=== PATIENT | female | born 1980 | race Caucasian/White ===

== ENCOUNTER 2019-06-01 15:42 | Observation (INO) | payer OTHER ==
[2019-06-01 16:38] LABS: Absolute Lymphocytes (CBC) 1.7 K/uL (0.7-4.9); Basophils % 0.4 % (0-1.3); Hematocrit 43.7 % (36.0-45.0); MPV 8.2 fL (7.6-11.3); RBC Red Blood Cell Count 5.24 M/uL (3.86-4.86)
[2019-06-01 16:59] LABS: Albumin 3.4 g/dL (3.4-5.0); Bilirubin Direct 0.5 mg/dL (0-0.2); Bilirubin Total 1.1 mg/dL (0.2-1.0); Potassium 3.7 mmol/L (3.5-5.1); Protein, Total 8.9 g/dL (6.4-8.2)
--- NOTE | 2019-06-01 17:49 | EDPHYS ---
Physician Documentation [facility] Name: Zonia Beauchamp Age: 38 yrs Sex: Female : 1980 Arrival Date: 06/01/2019 Time: 15:45 Bed 24 Private MD: ED Physician Ibrahima Martino HPI: 06/01 16:05 This 38 yrs old Female presents to ER via Ambulatory with complaints of Flank kb Pain. 16:05 The patient presents with abdominal pain in the right upper quadrant. Onset: The kb symptoms/episode began/occurred 5 day(s) ago. The symptoms do not radiate. Associated signs and symptoms: none. The symptoms are described as constant. Modifying factors: The symptoms are alleviated by nothing, the symptoms are aggravated by nothing. Severity of pain: At its worst the pain was moderate in the emergency department the pain is unchanged. The patient has not experienced similar symptoms in the past. The patient has not recently seen a physician. 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 - Coronavirus screen:: The patient has NOT traveled to [place] in the past 14 days. The patient has NOT had contact with known/suspected case of Coronavirus?. - Social history:: Smoking status: Patient denies any tobacco usage or history of. - Ebola Screening: : Patient negative for fever greater than or equal to 101.5 degrees Fahrenheit, and additional compatible Ebola Virus Disease symptoms Patient denies exposure to infectious person Patient denies travel to an Ebola-affected area in the 21 days before illness onset No symptoms or risks identified at this time. ROS: 16:04 Constitutional: Negative for fever, chills, and weight loss, Neck: Negative for injury, kb pain, and swelling, Cardiovascular: Negative for chest pain, palpitations, and edema, Respiratory: Negative for shortness of breath, cough, wheezing, and pleuritic chest pain, Back: Negative for injury and pain, : Negative for injury, bleeding, discharge, and swelling, MS/Extremity: Negative for injury and deformity, Skin: Negative for injury, rash, and discoloration, Neuro: Negative for headache, weakness, numbness, tingling, and seizure. 16:04 Abdomen/GI: Positive for abdominal pain. Exam: 16:04 Constitutional: This is a well developed, well nourished patient who is awake, alert, kb and in no acute distress. Head/Face: Normocephalic, atraumatic. Chest/axilla: Normal chest wall appearance and motion. Nontender with no deformity. No lesions are appreciated. Cardiovascular: Regular rate and rhythm with a normal S1 and S2. No gallops, murmurs, or rubs. Normal PMI, no JVD. No pulse deficits. Respiratory: Lungs have equal breath sounds bilaterally, clear to auscultation and percussion. No rales, rhonchi or wheezes noted. No increased work of breathing, no retractions or nasal flaring. Back: No spinal tenderness. No costovertebral tenderness. Full range of motion. Skin: Warm, dry with normal turgor. Normal color with no rashes, no lesions, and no evidence of cellulitis. MS/ Extremity: Pulses equal, no cyanosis. Neurovascular intact. Full, normal range of motion. Neuro: Awake and alert, GCS 15, oriented to person, place, time, and situation. Cranial nerves II-XII grossly intact. Motor strength 5/5 in all extremities. Sensory grossly intact. Cerebellar exam normal. Normal gait. 16:04 Abdomen/GI: Inspection: obese Bowel sounds: normal, in all quadrants, Palpation: soft, in all quadrants, moderate abdominal tenderness, in the right upper quadrant. Vital Signs: 15:57 BP 145 / 86; Pulse 108; Resp 16 S; Temp 98.5(O); Pulse Ox 97% on R/A; Weight 146.96 kg ca1 (R); Height 5 ft. 7 in. (170.18 cm) (R); Pain 8/10; 16:56 BP 143 / 117; Pulse 97; Resp 18; Pulse Ox 100% on R/A; vc 17:30 BP 148 / 99; Pulse 97; Resp 17; Pulse Ox 99% on R/A; vc 18:30 BP 144 / 107; Pulse 101; Resp 17; Pulse Ox 96% on R/A; vc 19:15 BP 134 / 90; Pulse 97; Resp 17; Temp 98.5(O); Pulse Ox 98% on R/A; vc 15:57 Body Mass Index 50.75 (146.96 kg, 170.18 cm) ca1 MDM: 16:00 Patient medically screened. kb 16:04 Data reviewed: vital signs, nurses notes. Data interpreted: Pulse oximetry: on room air kb is 97 %. Interpretation: normal. 17:47 Counseling: I had a detailed discussion with the patient and/or guardian regarding: the kb historical points, exam findings, and any diagnostic results supporting the discharge/admit diagnosis, lab results, radiology results, the need for further work-up and treatment in the hospital. Physician consultation: Alex Álvarez MD was contacted at 17:47, regarding admission, to the medical/surgical unit. consult, patient's condition, and will see patient in inpatient room, would like medications started, Zosyn. 06/01 16:03 Order name: Basic Metabolic Panel 06/01 16:03 Order name: CBC with Diff kb 06/01 16:03 Order name: Hepatic Function kb 06/01 16:03 Order name: Lipase kb 06/01 16:49 Order name: CBC with Automated Diff; Complete Time: 16:49 EDMS 06/01 17:03 Order name: Basic Metabolic Panel EDUT 06/01 16:03 Order name: US Abdomen Limited kb 06/01 17:03 Order name: Liver (Hepatic) Function EDUT 06/01 17:03 Order name: Lipase EDUT 06/01 20:06 Order name: US; Complete Time: 07:05 EDUT 06/01 16:03 Order name: IV Saline Lock; Complete Time: 16:29 kb 06/01 16:03 Order name: Labs collected and sent; Complete Time: 16:29 kb Administered Medications: 18:17 Drug: Zofran 4 mg Route: IVP; Site: right forearm; vc 19:00 Follow up: Response: No adverse reaction vc 18:18 Drug: NS 0.9% 1000 ml Route: IV; Rate: 125 ml/hr; Site: left forearm; vc 20:22 Follow up: IV Status: Infusion continued upon admission; IV Intake: 300ml vc 18:18 Drug: Zosyn 3.375 grams Route: IVPB; Infused Over: 60 mins; Site: right forearm; vc 18:18 Drug: morphine 4 mg Route: IVP; Site: right forearm; vc 19:00 Follow up: Response: No adverse reaction; Pain is decreased vc Disposition: 06/02 07:04 Co-signature as Attending Physician, Ibrahima Martino MD. rn Disposition: 06/01/19 17:48 Hospitalization ordered by Alex Álvarez for Observation. Preliminary diagnosis are Cholelithiasis, Cholecystitis. - Bed requested for Telemetry/MedSurg (observation). - Status is Observation. vc - Condition is Stable. - Problem is new. - Symptoms are unchanged. Signatures: Dispatcher [employer] EDMS Ban Lundberg, FORMULA MAKER-C FORMULA MAKER-Ckb Ibrahima Martino MD MD rn Gita, Apolonia RN RN ca1 Pamela Go RN RN vc Calos Loyd 4 Corrections: (The following items were deleted from the chart) 06/01 18:44 17:48 Hospitalization Ordered by Alex Álvarez MD for Observation. Preliminary diagnosis dh4 is Cholelithiasis; Cholecystitis. Bed requested for Telemetry/MedSurg (observation). Status is Observation. Condition is Stable. Problem is new. Symptoms are unchanged. kb 20:20 18:44 06/01/2019 17:48 Hospitalization Ordered by Alex Álvarez MD for Observation. vc Preliminary diagnosis is Cholelithiasis; Cholecystitis. Bed requested for Telemetry/MedSurg (observation). Status is Observation. Condition is Stable. Problem is new. Symptoms are unchanged. dh4
--- NOTE | 2019-06-01 17:49 | ER ---
Nurse's Notes [facility] Name: Zonia Beauchamp Age: 38 yrs Sex: Female : 1980 Arrival Date: 06/01/2019 Time: 15:45 Bed 24 Private MD: Diagnosis: Cholelithiasis;Cholecystitis Presentation: 06/01 15:53 Presenting complaint: Patient states: R sided abdominal pain x 5 days, upper and lower. ca1 If I breathe deep, it hurts my stomach, like it is putting pressure on it. Denies N/V/Diarrhea. Reports chills, denies fever. Transition of care: patient was not received from another setting of care. Onset of symptoms was June 01, 2019. Risk Assessment: Do you want to hurt yourself or someone else? Patient reports no desire to harm self or others. Initial Sepsis Screen: Does the patient meet any 2 criteria? No. Patient's initial sepsis screen is negative. Does the patient have a suspected source of infection? No. Patient's initial sepsis screen is negative. Care prior to arrival: None. 15:53 Method Of Arrival: Ambulatory ca1 15:53 Acuity: ELÍAS 3 ca1 Triage Assessment: 19:35 General: Appears in no apparent distress. uncomfortable, Behavior is calm, cooperative, vc appropriate for age. Pain: Complains of pain in right upper quadrant. 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 - Coronavirus screen:: The patient has NOT traveled to [place] in the past 14 days. The patient has NOT had contact with known/suspected case of Coronavirus?. - Social history:: Smoking status: Patient denies any tobacco usage or history of. - Ebola Screening: : Patient negative for fever greater than or equal to 101.5 degrees Fahrenheit, and additional compatible Ebola Virus Disease symptoms Patient denies exposure to infectious person Patient denies travel to an Ebola-affected area in the 21 days before illness onset No symptoms or risks identified at this time. Screenin:00 Abuse screen: Denies threats or abuse. Nutritional screening: No deficits noted. vc Tuberculosis screening: No symptoms or risk factors identified. Fall Risk None identified. Assessment: 16:30 General: Appears in no apparent distress. uncomfortable, Behavior is calm, cooperative, vc appropriate for age. Pain: Complains of pain in right upper quadrant. Neuro: Level of Consciousness is awake, alert, obeys commands, Oriented to person, place, time, situation. Cardiovascular: Patient's skin is warm and dry. Respiratory: No deficits noted. GI: No signs and/or symptoms were reported involving the gastrointestinal system. : No signs and/or symptoms were reported regarding the genitourinary system. EENT: No deficits noted. Derm: Skin temperature is warm. Musculoskeletal: Circulation, motion, and sensation intact. Range of motion: intact in all extremities. 17:30 Reassessment: Patient and/or family updated on plan of care and expected duration. Pain vc level reassessed. Patient is alert, oriented x 3, equal unlabored respirations, skin warm/dry/pink. 18:30 Reassessment: Patient and/or family updated on plan of care and expected duration. Pain vc level reassessed. Patient is alert, oriented x 3, equal unlabored respirations, skin warm/dry/pink. Patient states feeling better. 19:30 Reassessment: Patient and/or family updated on plan of care and expected duration. Pain vc level reassessed. Patient is alert, oriented x 3, equal unlabored respirations, skin warm/dry/pink. Patient states feeling better. Patient states symptoms have improved. 20:00 Reassessment: Patient and/or family updated on plan of care and expected duration. Pain vc level reassessed. Patient is alert, oriented x 3, equal unlabored respirations, skin warm/dry/pink. Patient states feeling better. Patient states symptoms have improved. Neuro: Level of Consciousness is awake, alert, obeys commands, Oriented to person, place, time, situation. Vital Signs: 15:57 BP 145 / 86; Pulse 108; Resp 16 S; Temp 98.5(O); Pulse Ox 97% on R/A; Weight 146.96 kg ca1 (R); Height 5 ft. 7 in. (170.18 cm) (R); Pain 8/10; 16:56 BP 143 / 117; Pulse 97; Resp 18; Pulse Ox 100% on R/A; vc 17:30 BP 148 / 99; Pulse 97; Resp 17; Pulse Ox 99% on R/A; vc 18:30 BP 144 / 107; Pulse 101; Resp 17; Pulse Ox 96% on R/A; vc 19:15 BP 134 / 90; Pulse 97; Resp 17; Temp 98.5(O); Pulse Ox 98% on R/A; vc 15:57 Body Mass Index 50.75 (146.96 kg, 170.18 cm) ca1 ED Course: 15:45 Patient arrived in ED. rg4 15:55 Triage completed. ca1 15:57 Arm band placed on right wrist. ca1 16:00 Ban Lundberg FNP-C is PHCP. kb 16:00 Ibrahima Martino MD is Attending Physician. kb 16:00 Patient has correct armband on for positive identification. vc 16:10 Pamela Go RN is Primary Nurse. vc 16:30 Inserted saline lock: 20 gauge in left forearm, using aseptic technique. vc 17:48 Alex Álvarez MD is Hospitalizing Provider. kb 20:19 No provider procedures requiring assistance completed. Patient admitted, IV remains in vc place. Administered Medications: 18:17 Drug: Zofran 4 mg Route: IVP; Site: right forearm; vc 19:00 Follow up: Response: No adverse reaction vc 18:18 Drug: NS 0.9% 1000 ml Route: IV; Rate: 125 ml/hr; Site: left forearm; vc 20:22 Follow up: IV Status: Infusion continued upon admission; IV Intake: 300ml vc 18:18 Drug: Zosyn 3.375 grams Route: IVPB; Infused Over: 60 mins; Site: right forearm; vc 18:18 Drug: morphine 4 mg Route: IVP; Site: right forearm; vc 19:00 Follow up: Response: No adverse reaction; Pain is decreased vc Intake: 20:22 IV: 300ml; Total: 300ml. vc Outcome: 17:48 Decision to Hospitalize by Provider. kb 20:19 Admitted to Med/surg accompanied by tech, via wheelchair, with chart. vc 20:19 Condition: good 20:20 Patient left the ED. vc Signatures: Ban Lundberg FNP-C BIOLOGICAL PHOTOGRAPHER-Ckb Sana Baird rg4 Apolonia Pelayo, RN RN ca1 Pamela Go, RN RN vc
--- NOTE | 2019-06-01 17:59 | RAD REPORT ---
EXAM DESCRIPTION: US - Abdomen Exam Limited - 06/01/2019 5:35 pm CLINICAL HISTORY: ABD PAIN COMPARISON: No comparisons FINDINGS: Gallbladder size is normal. Wall thickening is present. Minimal amount of pericholecystic fluid is seen. Multiple gallstones are identified including a 2 centimeter stone that remains at the neck of the gallbladder. No common duct stone or biliary tree dilatation identified. IMPRESSION: Multi stone cholelithiasis with gallbladder wall thickening and suspected pericholecysti c fluid. Findings are suspicious for acute cholecystitis can be correlated with clinical presentation. No duct stone or biliary tree dilatation.
[2019-06-01] MEDS ORDERED: MORPHINE 4 MG/ML SYR ONE (18:02)
[2019-06-01] MEDS ORDERED: ONDANSETRON 4 MG/2 ML VIAL ONE (18:02)
[2019-06-01] MEDS ORDERED: PIPER/TAZO/NS 3.375gm 3.375 GM/100 ML BAG ONE ×2 (18:03→20:00)
[2019-06-01] MEDS ORDERED: NA CHLORIDE 0.9% 1,000 ML ONE (18:03)
[2019-06-01 20:22] VITALS: BMI 50.5
[2019-06-01] MEDS ORDERED: ONDANSETRON 4 MG/2 ML VIAL IV PRN (22:05)
[2019-06-01] MEDS: PIPER/TAZO/NS 3.375gm 3.375 GM/100 ML BAG IVPB SCH (22:05)
[2019-06-01] MEDS ORDERED: ACETAMINOPHEN 500 MG TAB PO PRN (22:05)
[2019-06-01] MEDS ORDERED: MORPHINE 4 MG/ML SYR IV PRN (22:05)
[2019-06-01] MEDS: NA CHLORIDE 0.9% 1,000 ML IV SCH (23:01)
[2019-06-02] MEDS: PIPER/TAZO/NS 3.375gm 3.375 GM/100 ML BAG IVPB SCH ×4 (00:18→16:47)
[2019-06-02] MEDS ORDERED: PIPERACIL/TAZO 3.375 GM VIAL IV ONE (04:35)
[2019-06-02] MEDS ORDERED: NA CHLORIDE 0.9% 100 ML ONE (04:38)
[2019-06-02 06:01] LABS: Absolute Lymphocytes (CBC) 1.7 K/uL (0.7-4.9); Basophils % 0.2 % (0-1.3); Lymphocytes % 21.6 % (15.3-44.8); RBC Red Blood Cell Count 4.38 M/uL (3.86-4.86)
[2019-06-02] MEDS: NA CHLORIDE 0.9% 1,000 ML IV SCH ×2 (06:04→14:05)
[2019-06-02 06:37] LABS: Albumin 2.8 g/dL (3.4-5.0); Bilirubin Direct 0.4 mg/dL (0-0.2); Bilirubin Total 0.7 mg/dL (0.2-1.0); Potassium 3.5 mmol/L (3.5-5.1); Protein, Total 7.4 g/dL (6.4-8.2)
[2019-06-02] MEDS ORDERED: Ringers Lactate 1,000 ML IV ONE ×2 (10:08→12:14)
[2019-06-02] MEDS ORDERED: MIDAZOLAM HCL 2 MG/2 ML INJ ONE (10:46)
[2019-06-02] MEDS ORDERED: propofoL 200 MG/20 ML VIAL IV ONE (10:46)
[2019-06-02] MEDS ORDERED: FENTANYL CITR 100 MCG/2 ML ONE ×2 (10:46→12:02)
[2019-06-02] MEDS ORDERED: LIDOCAINE 2% MPF 5 ML VIAL ONE (10:47)
[2019-06-02] MEDS ORDERED: ROCURONIUM 50 MG/5 ML VIAL IV ONE (10:48)
[2019-06-02] MEDS ORDERED: BUPIVACA 0.25%/EPI 0.0005% MDV 50 ML VIAL ONE (11:20)
[2019-06-02] MEDS ORDERED: dexAMETHasone 10 MG/ML VIAL ONE (11:50)
[2019-06-02] MEDS ORDERED: LABETALOL 20 MG/4ML SYRINGE IV ONE (12:14)
[2019-06-02] MEDS ORDERED: KETOROLAC 30 MG/ML INJ ONE (13:12)
[2019-06-02] MEDS ORDERED: GLYCOPYRROLATE 0.2 MG/ML SYR ONE ×2 (13:12→14:04)
--- NOTE | 2019-06-02 13:58 | P.OP ---
Preoperative diagnosis: Acute Calculous Cholecystitis Postoperative diagnosis: Acute Calculous Cholecystitis Primary procedure: Laparoscopic Cholecystectomy Anesthesia: GETA + Local Estimated blood loss: ~35 Specimen: Gallbladder Findings: Distended GB, Short Cystic Artery, Complications: Other (trocar injury to liver) Implants: Leighton 3Gram Hemostatic Agent Powder Transferred to: Recovery Room Condition: Good
[2019-06-02] MEDS ORDERED: NEOSTIGMINE 1 MG/ML -5 ML ONE (13:59)
[2019-06-02] MEDS ORDERED: HYDROMORPHONE HCL 1 MG/ML INJ ONE (14:49)
[2019-06-02] MEDS: Ringers Lactate 1,000 ML IV SCH ×2 (15:00→23:38)
[2019-06-02] MEDS ORDERED: POTASSIUM 25 MEQ EFFERV TAB PO ONE (16:00)
[2019-06-02] MEDS: INSULIN -REGULAR HUMAN 50 UNIT/0.5 ML ML SQ SCH ×2 (16:30→21:00)
[2019-06-02] MEDS: HYDROCODONE/APAP 7.5/325 MG TAB PO PRN (17:07)
--- NOTE | 2019-06-02 19:25 | HP ---
Date of Admission: 06/01/2019 Brief History Of Present Illness: Patient is a 38-year-old morbidly obese female with a history of e pigastric and right upper quadrant abdominal pain beginning approximately 5 to 6 days ago. She state s that she thought this was related to bread. She continued to eat bread and other greasy foods, and the pain got significantly worse and as such. She came to the emergency room with the above-stated complaints. She had some nausea, but no vomiting. No significant change in bowel or bladder habits. No recent travel. No sick contacts. The pain was moderate in the emergency room and has significa ntly better since being in the hospital, however, it is more of a dull ache at this point. It was sh antoinette and stabbing before in the right upper quadrant. Now, it is a dull ache in the right upper quadr ant. She denies similar episodes before in the past. Past Medical History: Significant for polycystic ovary disease, ADHD, and obstructive sleep apnea an d morbid obesity. Past Surgical History: Denies. Allergies: NO KNOWN DRUG ALLERGIES. Home Medications: Include Zyrtec, Adderall, and Singulair. Social History: She denies smoking, alcohol, or recreational drug use, recent travel outside the [facility]. Review of Systems: 10-point review of systems other than HPI, denies. Physical Examination: Vital Signs: At the time of my examination, her vital signs were a temperature 97.9, heart rate 93, respiratory rate 17, blood pressure 110/90, SpO2 of 95% on room air. Her BMI is 50. She is 323 poun ds, 5 feet 7 inches. General: She is awake, alert, and oriented. Psychiatric: She is appropriately conversive. HEENT: Normocephalic. Sclerae icteric. Mucous membranes are moist. Oropharynx clear. Neck: Supple. No JVD. Chest: Normal expansion and excursion. Cardiovascular: Regular rate and rhythm. Pulmonary: Clear to auscultation bilaterally. Abdomen: Soft with mild right upper quadrant tenderness to palpation. Negative Busch sign. No anitha ound. No guarding. No focal peritonitis. She has a large supraumbilical hernia/ventral abdominal w all hernia, which is partially reducible. Extremities: No clubbing, cyanosis, or edema. Laboratory Data: Reveals a white blood count of 8.0, hemoglobin 12.5, hematocrit 37.0, platelet coun t is 240, neutrophils are normal at 64%. Her sodium 138, potassium 3.5, chloride 104, carbon dioxide 26, BUN 10, creatinine 0.7, glucose is 95, total bilirubin 0.7, direct component 0.4, AST is 25, ALT 36, alkaline phosphatase is 98. Lipase is 60. She had imaging performed, which included an abdomin al ultrasound officially read as multi stone cholelithiasis, gallbladder wall thickening, suspecting pericholecystic fluid. Findings suspicious for acute cholecystitis can be correlated with clinical p resentation. No duct stone or biliary tree dilatation. Assessment And Plan: This is a 38-year-old female, who comes in with signs and symptoms of early leda culous cholecystitis. 1.IV fluid hydration. 2.Antibiotic coverage with Zosyn 3.375 IV q.6h. 3.I have explained the risks, benefits, and alternatives of laparoscopic, possible open cholecystect belen including but not limited to bleeding, infection, damage to surrounding tissues, injury to bile d ucts, intestines, need for further operation and procedures. The patient agrees to proceed as indica debbie. ALVIN/DEANGELO Voice ID: [id number]
--- NOTE | 2019-06-02 21:19 | OP ---
Date of Procedure: 06/02/2019 Surgeon: Alex Álvarez MD, Preoperative Diagnosis: Acute calculous cholecystitis. Postoperative Diagnosis: Acute calculous cholecystitis. Procedure Performed: Laparoscopic cholecystectomy. Anesthesia: General endotracheal plus 0.5% Marcaine with epinephrine. Estimated Blood Loss: Less than 35 cc. Specimen: Gallbladder. Findings: 1.Distended gallbladder. 2.Short cystic duct. 3.Gross enlargement of gallbladder. 4.2 cm gallstone impacted in the neck of the gallbladder. Complications: The patient had a superficial trocar injury to the anterior surface of the liver righ t above the hepatic fossa. Implants: Leighton 3 g, hemostatic agent powder Disposition: Transferred recovery room in good condition. Procedure In Detail: After informed was obtained, patient was brought to the operating room, prepped and draped in usual sterile fashion. After adequate anesthesia achieved, I anesthetized an area to the right of the umbilicus as the patient had a ventral hernia evident in this area and as such, I an esthetized the area to the right of the umbilicus with 0.5% Marcaine with epinephrine. A stab incisi on was made and I inserted a 0 degree 5 mm optical trocar under direct visualization without complica tion. Insufflation was obtained 15 mmHg at this time. There was no injury to vital structures upon entering in the abdomen. The gallbladder was visualized, covered with omentum draped over the top wi th significant inflammatory changes to the right upper quadrant. Additional trocar was chosen in the epigastrium, 1 in the right upper quadrant and 1 in the left upper quadrant. This was similarly ane sthetized and sharply incised. 5 mm trocars were introduced in the abdomen. The right upper quadran t initial 5 mm trocar after being placed scraped to the anterior surface of the liver and there was s ome bleeding. Hemostasis was easily achieved with electrocautery at this point. It was not a deep p uncture, but rather a scrape of the Juan Pablo's capsule on the anterior surface of the liver. I then u psized the periumbilical trocar to a 12 mm under direct visualization without evidence of complicatio n. The patient positioned head up right-side up position. Ratcheted grasper was used to grasp the p atient's gallbladder. This was unsuccessful. Decompression needle was brought on and decompressed th e gallbladder as much as possible. This allowed for grasping of the gallbladder. Dissection continu ed down to the Elyse pouch. This was significant. There was significant adipose tissue in this a cecilia and dissection was slow and meticulous and use of a combination of electrocautery suction as well as blunt dissection. After the cystic duct and cystic artery were both visualized double titanium c lips were placed on both the cystic duct and the cystic artery and a LigaSure was used to ligate the cystic artery and the cystic duct was ligated using the Endo Toshia after the critical view of safety was obtained. I then removed the gallbladder from the hepatic fossa. There was some minimal amount of bleeding from the hepatic fossa. The gallbladder was quite large and as such, a significant port ion of the liver was covered in the gallbladder which was partially intrahepatic. I then placed in E ndoCatch bag and removed the umbilical trocar. I fulgurated the gallbladder bed at this point and ir rigated the area copiously multiple times until completely clear and suctioned out the effluent. I t hen inspected this. Clips were found to be in good anatomic position. No additional hemostatic aviva ures required. I, however, placed some Leighton 3 g powder in this area to help with additional hemost asis in the area and the patient position neutral position. I then turned my attention to the perium bilical trocar, which had to be extended due to the large dependent stone which was approximately 2 c m in size. In addition, the inflammatory change of the gallbladder. The incision extended approxima tely 2 to 2.5 cm. I then used a Jamir-Oanh suture passer to use multiple 0 Vicryl interrupted c losure in the periumbilical trocar site. The abdomen was then completely desufflated under direct vi sualization without complication. All trocars were removed. All skin incisions copiously irrigated and closed with interrupted cameron. Patient tolerated the procedure well without evidence of compli cation and transferred to PACU in good condition. All counts were correct at the end of the case. ALVIN/DEANGELO Voice ID: [id number] Report ID: [id number]
[2019-06-03] MEDS: PIPER/TAZO/NS 3.375gm 3.375 GM/100 ML BAG IVPB SCH ×2 (00:02→08:18)
[2019-06-03] MEDS: HYDROCODONE/APAP 7.5/325 MG TAB PO PRN ×3 (03:28→12:25)
[2019-06-03 05:40] LABS: Absolute Lymphocytes (CBC) 1.1 K/uL (0.7-4.9); Basophils % 0.3 % (0-1.3); Hematocrit 33.5 % (36.0-45.0); Lymphocytes % 10.5 % (15.3-44.8); RBC Red Blood Cell Count 3.94 M/uL (3.86-4.86)
[2019-06-03 05:49] LABS: ALT/SGPT 64 U/L (12-78); AST/SGOT 82 U/L (15-37); Albumin 2.5 g/dL (3.4-5.0); Alkaline Phosphatase 93 U/L (45-117); BUN Blood Urea Nitrogen 10 mg/dL (7-18); Bicarbonate 26 mmol/L (21-32); Bilirubin Total 0.5 mg/dL (0.2-1.0); Glucose Level 113 mg/dL (74-106); Magnesium 2.4 mg/dL (1.8-2.4); Phosphorus 2.5 mg/dL (2.5-4.9); Potassium 3.9 mmol/L (3.5-5.1); Protein, Total 6.7 g/dL (6.4-8.2); Sodium Level 139 mmol/L (136-145)
[2019-06-03] MEDS: INSULIN -REGULAR HUMAN 50 UNIT/0.5 ML ML SQ SCH ×2 (07:30→11:30)
[2019-06-03] MEDS: POTASS/SODIUM PHOSPHATE 1 PKT POWD.PACK PO SCH ×3 (08:17→11:24)
[2019-06-03 08:45] VITALS: TEMP 97.8
[2019-06-03] MEDS ORDERED: POTASSIUM CL SA 10 MEQ TAB PO ONE (09:00)
[2019-06-03 10:41] VITALS: O2SAT 98
[2019-06-03 14:27] VITALS: BP 108/54
== END 2019-06-03 15:24 | disposition home or self-care (01) ==
LOC: ER 15:42 → ERHOLD 17:50 → 2ND 19:51
PROVIDERS: ADMIT Surgery; ATTEND Surgery
PROC: 0FT44ZZ Resection of Gallbladder, Percutaneous Endoscopic Approach (ICD-10-PCS; principal; 2019-06-02 11:30)
DX: K80.00 Calculus of gallbladder with acute cholecystitis without obstruction (principal)
CPT/HCPCS: 96361; 85025 ×3; 80048 ×2; 36415 ×3; 83735; 81025; 84100; 82947 ×4; 80076 ×2; 88304; 83690 ×2; 80053; 76705; 94760 ×4; 96375; 96374; 99285; 47562; J2704; J2543 ×4; J2250; J3010 ×2; J1100; J1170; J2710; G0378 ×5; J7120 ×3; J7030 ×3; J2405

== ENCOUNTER → 2020-03-27 | Day surgery (SDC) | payer OTHER ==
[~2020-03-27] MED LIST: CEFAZOLIN/SWI 2gm 2 GM/20 ML SYR IV SCH; FENTANYL CITR 100 MCG/2 ML ONE; GLYCOPYRROLATE 0.2 MG/ML SYR ONE; HYDROCODONE/APAP 10/325 TAB ONE; HYDROMORPHONE HCL 1 MG/ML INJ ONE; KETOROLAC 30 MG/ML INJ ONE; LIDOCAINE 1% MPF 5 ML VIAL ONE; MIDAZOLAM HCL 2 MG/2 ML INJ ONE; NEOSTIGMINE 1 MG/ML -5 ML ONE; ONDANSETRON 4 MG/2 ML VIAL ONE; ROCURONIUM 50 MG/5 ML VIAL IV ONE; Ringers Lactate 1,000 ML IV ONE; SUCCINYLCHOLINE 20 MG/ML (10 ML) IV ONE; dexAMETHasone 10 MG/ML VIAL ONE; propofoL 200 MG/20 ML VIAL IV ONE
[2020-03-27 08:03] LABS: Specific Gravity 1.015 (1.005-1.030)
[2020-03-27] MEDS: CEFAZOLIN/SWI 2gm 2 GM/20 ML SYR ONE ×3 (08:34→09:05)
--- NOTE | 2020-03-27 10:09 | P.OP ---
Preoperative diagnosis: Ventral Abdominal Wall Hernias Postoperative diagnosis: Ventral Abdominal Wall Hernias Primary procedure: Laparoscopic Ventral Abdominal Wall Hernia repair with mesh Secondary procedure: Laparosopic primary repair, laparoscopic adhesiolysis Anesthesia: GETA + Local Estimated blood loss: <10cc Specimen: None Findings: Multiple Ventral Abdominal wall hernias - periumbilical to epigastric Implants: Bard Ventralite ST mesh 6" x 8" Transferred to: Recovery Room Condition: Good
--- NOTE | 2020-03-27 10:51 | OP ---
Date of Procedure: 03/27/2020 Surgeon: Alex Álvarez MD, Brief History Of Present Illness: The patient is a 39-year-old female with a known past medical hist ory of multiple epigastric abdominal hernias for multiple years. They have been progressively worsen ing over the course of the past several years and as such, she has opted to have these repaired surgi mirella at this point. Preoperative Diagnosis: Multiple ventral abdominal hernias. Postoperative Diagnosis: Multiple ventral abdominal hernias. Procedures Performed: 1.A laparoscopic ventral hernia repair with mesh. 2.Laparoscopic primary hernia repair. 3.Laparoscopic adhesiolysis. Anesthesia: General endotracheal plus local with 0.25% Marcaine without epinephrine. Estimated Blood Loss: Less than 10 mL. Specimen: None. Findings: Multiple ventral abdominal hernias, periumbilical to epigastric, approximately 4 inches x 3 inches in size. Disposition: The patient was transferred to recovery room in good condition. Implants: A Bard Ventralight ST 6 inch x 8 inch oval mesh with Echo Positioning System. Procedure In Detail: After informed consent was obtained, the patient was brought to the operating r oom and prepped and draped in the usual sterile fashion. After adequate anesthesia achieved, a left upper quadrant incision was made. A 5 mm degree optical trocar was used to introduce into the abdome n without evidence of complication. Insufflation was obtained to 15 mmHg. There was no injury to vi rolf structures upon entry to the abdomen. At this point, an additional trocar was placed in the left lower quadrant. This was similarly anesthetized and sharply incised. A 12 mm trocar was introduced in the abdomen without evidence of complication. A ventral abdominal hernia as described multiple a bdominal ventral hernias were noted as above. These were dissected and removed back to the normal an atomic position as there was entrapped incarcerated omentum in this area. The omentum was reduced ba ck to the normal anatomic position with a combination of traction plus LigaSure cautery. At this poi nt after the tissue returned to the normal anatomic position, the hernia defect was sized appropriate ly and a mesh was then excised and the Endo Stitch with 0 V-Loc was used to primarily repair these he rnia defects and closed them with primary repair with good apposition of the tissue. The 6 inch x [address] mesh was then brought in and the Echo Positioning System was used to central ize the mesh and used to deploy the mesh. I then used the absorbable fixation tack, called SorbaFix to affix the mesh to the anterior abdominal wall. The mesh deployment system was removed in its enti rety and the mesh was then secured with a double crown technique to the anterior abdominal wall using approximately 90 absorbable fixation tacks. At this point, there were no hemostatic maneuvers requi red. The mesh was in good apposition. The anterior abdominal wall defects were closed with signific ant overlap. At this point, I then removed the left lower quadrant trocar and closed this trocar sit e using a Jamir-Oanh suture passer with a 0 Vicryl in an interrupted fashion with good approxima tion of tissues. The remaining portion of the abdomen was then decompressed under direct visualizati on with the remaining left upper quadrant trocar. Once the abdomen was completely decompressed, the last trocars removed. All skin incisions were copiously irrigated and closed with a 4-0 Monocryl in a running fashion. Dermabond was placed over top. The patient tolerated the procedure well without evidence of complication. Abdominal binder was placed to the patient. All counts were correct at th e end of the case. ALVIN/DEANGELO Voice ID: [id number] Report ID: [id number]
[2020-03-27 10:59] VITALS: TEMP 96.5
[2020-03-27 13:54] VITALS: BP 128/72; O2SAT 100
== END | disposition home or self-care (01) ==
LOC: OR 07:36
PROVIDERS: ATTEND Surgery
PROC: 0WUF4JZ Supplement Abdominal Wall with Synthetic Substitute, Percutaneous Endoscopic Approach (ICD-10-PCS; principal; 2020-03-27 08:30)
DX: K43.6 Other and unspecified ventral hernia with obstruction, without gangrene (principal); E66.01 Morbid (severe) obesity due to excess calories; Z20.828 Contact with and (suspected) exposure to other viral communicable diseases
CPT/HCPCS: 81025; J0330; J0690; J1100; J1170; J2250; J2405; J2704; J2710; J3010; J7120; U0002